=== PATIENT | male | born 1995 | race Caucasian/White ===

== ENCOUNTER 2017-09-22 17:10 | Emergency (ER) | payer MEDICAID ==
[~2017-09-22] VITALS: Ht 172.7 cm; Wt 71.2 kg
[2017-09-22] MEDS ORDERED: PROZAC40 MG ORAL (17:11)
[2017-09-22 17:13] VITALS: BP 145/82
[2017-09-22] MEDS ORDERED: Capsaicin 0.075% Cream TOPIC ONE (17:45)
[2017-09-22] MEDS ORDERED: Acetaminophen 500mg (ES) tab ORAL ONE (17:48)
[2017-09-22 17:55] LABS: HEMATOCRIT 55.9 % (42.0-52.0); MEAN CORPUSCULAR VOLUME 90 FL (80-99); PLATELET COUNT 382 K/UL (150-450); RED CELL DISTRIBUTION WIDTH 11.4 % (11.6-14.8); WHITE BLOOD COUNT 19.9 K/UL (4.8-10.8)
[2017-09-22 17:58] LABS: HEMOGLOBIN 19.1 G/DL (14.2-18.0)
[2017-09-22 18:04] LABS: ANION GAP 31 mmol/L (5-15); BLOOD UREA NITROGEN 7 mg/dL (7-18); CALCIUM 10.4 MG/DL (8.5-10.1); CARBON DIOXIDE 11 MMOL/L (21-32); CHLORIDE 99 MMOL/L (98-107); CREATININE 1.4 MG/DL (0.55-1.30); POTASSIUM 4.2 MMOL/L (3.5-5.1); SODIUM 141 MMOL/L (136-145)
[2017-09-22 18:09] LABS: ALANINE AMINOTRANSFERASE 37 U/L (12-78); ALBUMIN 4.8 G/DL (3.4-5.0); ALBUMIN/GLOBULIN RATIO 1.2 (1.0-2.7); ALKALINE PHOSPHATASE 105 U/L (46-116); ASPARTATE AMINO TRANSFERASE 24 U/L (15-37); BILIRUBIN,TOTAL 0.5 MG/DL (0.2-1.0)
--- NOTE | 2017-09-22 18:17 | Emergency Room Report ---
History of Present Illness General Chief Complaint: Seizure Source: Patient, EMS Present Illness HPI This patient presents with multiple complaints. He states that he had been drinking yesterday and smoking marijuana. He states that he didn't sleep last night and then was working today. He states that he felt hung over all morning this morning. He states while he was at work became very nauseated and started vomiting. His coworkers and his stepdown report that he was on the floor and there was some concern that he had a seizure. He seemed disoriented and wasn't responding. He was also shaking and had a red face according to his stepdad. The patient has never had a seizure in the past. He does have anxiety and had been on Ativan for some time. He states he stopped using Ativan about one week ago. He has also had multiple episodes of watery diarrhea today. He has had a headache but states that is since resolved. He denies abdominal pain. She denies chest pain or shortness of breath. He states he still has severe nausea. He has no other complaints. Allergies: Coded Allergies: No Known Allergies (Unverified , 09/22/17) Patient History Past Medical History: see triage record, psych hx - Anxiety Social History: Reports: smoking, alcohol use, drug use - THC Reviewed Nursing Documentation: PMH: Agreed; PSxH: Agreed Nursing Documentation-PMH Past Medical History: No Stated History Review of Systems All Other Systems: negative except mentioned in HPI Physical Exam Vital Signs Date Time Temp Pulse Resp B/P (MAP) Pulse Ox O2 Delivery O2 Flow Rate FiO2 09/22/17 17:03 98.0 109 18 145/82 97 Room Air 98.1 Sp02 EP Interpretation: reviewed, normal General Appearance: no apparent distress, alert, GCS 15, non-toxic, other - Actively vomiting Head: normocephalic, atraumatic Eyes: bilateral eye normal inspection, bilateral eye PERRL ENT: hearing grossly normal, normal pharynx, no angioedema, normal voice Neck: full range of motion, supple/symm/no masses Respiratory: chest non-tender, lungs clear, normal breath sounds, no respiratory distress, no retraction, no accessory muscle use, speaking full sentences Cardiovascular #1: no edema, tachycardia Gastrointestinal: normal bowel sounds, non tender, soft, non-distended, no guarding, no rebound Rectal: deferred Musculoskeletal: back normal, normal range of motion, non-tender Neurologic: alert, oriented x3, responsive, motor strength/tone normal, sensory intact, speech normal Psychiatric: judgement/insight normal, memory normal, mood/affect normal, no suicidal/homicidal ideation Skin: normal color, no rash, warm/dry, well hydrated Medical Decision Making Diagnostic Impression: Primary Impression: Nausea & vomiting Additional Impressions: Gastroenteritis Leukocytosis Dehydration Hyperglycemia ER Course The patient had complete resolution of symptoms. He is given aggressive IV hydration and IV Zofran. The patient had a significant leukocytosis and hyperglycemia on arrival. I am concerned this patient had undiagnosed diabetes. I had planned on admitting this patient because the patient's leukocytosis persisted. The patient's blood sugar did improve with the aggressive hydration. Patient felt much better. I plan on admitting this patient for further monitoring and treatment, however, the patient left AGAINST MEDICAL ADVICE. He states that he has been told that his blood sugar has been elevated in the past and to use diet modification and exercise. He continued to refuse to be admitted. He and his mother state that he will go see his primary care physician who he does see regularly to get repeat labs. He was also told that if he changes his mind he can return as needed. He did appear much better and was nontoxic and well-appearing when he left. Laboratory Tests Test 09/22/17 17:30 09/22/17 20:49 White Blood Count 19.9 K/UL (4.8-10.8) H 23.2 K/UL (4.8-10.8) *H Red Blood Count 6.20 M/UL (4.70-6.10) H 5.10 M/UL (4.70-6.10) Hemoglobin 19.1 G/DL (14.2-18.0) *H 15.7 G/DL (14.2-18.0) Hematocrit 55.9 % (42.0-52.0) H 45.7 % (42.0-52.0) Mean Corpuscular Volume 90 FL (80-99) 90 FL (80-99) Mean Corpuscular Hemoglobin 30.8 PG (27.0-31.0) 30.7 PG (27.0-31.0) Mean Corpuscular Hemoglobin Concent 34.1 G/DL (32.0-36.0) 34.2 G/DL (32.0-36.0) Red Cell Distribution Width 11.4 % (11.6-14.8) L 11.6 % (11.6-14.8) Platelet Count 382 K/UL (150-450) 205 K/UL (150-450) Mean Platelet Volume 7.3 FL (6.5-10.1) 7.7 FL (6.5-10.1) Neutrophils (%) (Auto) % (45.0-75.0) % (45.0-75.0) Lymphocytes (%) (Auto) % (20.0-45.0) % (20.0-45.0) Monocytes (%) (Auto) % (1.0-10.0) % (1.0-10.0) Eosinophils (%) (Auto) % (0.0-3.0) % (0.0-3.0) Basophils (%) (Auto) % (0.0-2.0) % (0.0-2.0) Differential Total Cells Counted 100 Neutrophils % (Manual) 76 % (45-75) H Pending Lymphocytes % (Manual) 19 % (20-45) L Pending Monocytes % (Manual) 5 % (1-10) Eosinophils % (Manual) 0 % (0-3) Basophils % (Manual) 0 % (0-2) Band Neutrophils 0 % (0-8) Platelet Estimate Adequate Pending Platelet Morphology Normal Pending Red Blood Cell Morphology Normal Sodium Level 141 MMOL/L (136-145) 143 MMOL/L (136-145) Potassium Level 4.2 MMOL/L (3.5-5.1) 3.8 MMOL/L (3.5-5.1) Chloride Level 99 MMOL/L (98-107) 109 MMOL/L (98-107) H Carbon Dioxide Level 11 MMOL/L (21-32) L 26 MMOL/L (21-32) Anion Gap 31 mmol/L (5-15) H 8 mmol/L (5-15) Blood Urea Nitrogen 7 mg/dL (7-18) 5 mg/dL (7-18) L Creatinine 1.4 MG/DL (0.55-1.30) H 1.0 MG/DL (0.55-1.30) Estimate Glomerular Filtration Rate > 60 mL/min (>60) > 60 mL/min (>60) Glucose Level 212 MG/DL (74-106) H 122 MG/DL (74-106) H Calcium Level 10.4 MG/DL (8.5-10.1) H 7.5 MG/DL (8.5-10.1) #L Total Bilirubin 0.5 MG/DL (0.2-1.0) Aspartate Amino Transferase (AST) 24 U/L (15-37) Alanine Aminotransferase (ALT) 37 U/L (12-78) Alkaline Phosphatase 105 U/L (46-116) Troponin I 0.000 ng/mL (0.000-0.056) Total Protein 8.9 G/DL (6.4-8.2) H Albumin 4.8 G/DL (3.4-5.0) Globulin 4.1 g/dL Albumin/Globulin Ratio 1.2 (1.0-2.7) Serum Alcohol < 3 mg/dL Urine Color Pale yellow Urine Appearance Clear Urine pH 6 (4.5-8.0) Urine Specific [place] 1.015 (1.005-1.035) Urine Protein 2+ (NEGATIVE) H Urine Glucose (UA) 1+ (NEGATIVE) H Urine Ketones 2+ (NEGATIVE) H Urine Occult Blood 1+ (NEGATIVE) H Urine Nitrite Negative (NEGATIVE) Urine Bilirubin Negative (NEGATIVE) Urine Urobilinogen Normal MG/DL (0.0-1.0) Urine Leukocyte Esterase Negative (NEGATIVE) Urine RBC 0-2 /HPF (0 - 0) H Urine WBC 0-2 /HPF (0 - 0) Urine Squamous Epithelial Cells None /LPF (NONE/OCC) Urine Bacteria Few /HPF (NONE) Urine Opiates Screen Negative (NEGATIVE) Urine Barbiturates Screen Negative (NEGATIVE) Phencyclidine (PCP) Screen Negative (NEGATIVE) Urine Amphetamines Screen Negative (NEGATIVE) Urine Benzodiazepines Screen Negative (NEGATIVE) Urine Cocaine Screen Negative (NEGATIVE) Urine Marijuana (THC) Screen Positive (NEGATIVE) H EKG Diagnostic Results Rate: normal Rhythm: NSR - Short MD ST Segments: no acute changes Rhythm Strip Diag. Results EP Interpretation: yes Rate: 70's Rhythm: NSR, no PVC's, no ectopy CT/MRI/US Diagnostic Results CT/MRI/US Diagnostic Results : Imaging Test Ordered: CT head Impression No acute findings. See official report. Last Vital Signs Date Time Temp Pulse Resp B/P (MAP) Pulse Ox O2 Delivery O2 Flow Rate FiO2 09/22/17 17:55 98.0 09/22/17 17:13 18 145/82 97 Room Air 09/22/17 17:13 109 Status: improved Disposition: AGAINST MEDICAL ADVICE Condition: Improved Referrals: [facility],REFERRING (PCP) BEATRIZ HAYNES D.O. Sep 22, 2017 18:17
[2017-09-22 18:54] VITALS: BP 120/73
[2017-09-22 21:05] LABS: APPEARANCE,URINE CLEAR; BILIRUBIN, URINE NEGATIVE (NEGATIVE); COLOR,URINE PALE YELLOW; GLUCOSE, URINE (UA) 1+ (NEGATIVE); KETONES,URINE 2+ (NEGATIVE); LEUKOCYTE ESTERASE ,URINE NEGATIVE (NEGATIVE); NITRITE,URINE NEGATIVE (NEGATIVE); PH,URINE 6 (4.5-8.0); PROTEIN,URINE 2+ (NEGATIVE); UROBILINOGEN,URINE NORMAL MG/DL (0.0-1.0)
[2017-09-22 21:08] LABS: HEMATOCRIT 45.7 % (42.0-52.0); HEMOGLOBIN 15.7 G/DL (14.2-18.0); MEAN CORPUSCULAR VOLUME 90 FL (80-99); PLATELET COUNT 205 K/UL (150-450); RED CELL DISTRIBUTION WIDTH 11.6 % (11.6-14.8)
[2017-09-22 21:13] LABS: WHITE BLOOD COUNT 23.2 K/UL (4.8-10.8)
[2017-09-22 21:15] LABS: ANION GAP 8 mmol/L (5-15); BLOOD UREA NITROGEN 5 mg/dL (7-18); CALCIUM 7.5 MG/DL (8.5-10.1); CARBON DIOXIDE 26 MMOL/L (21-32); CHLORIDE 109 MMOL/L (98-107); POTASSIUM 3.8 MMOL/L (3.5-5.1); SODIUM 143 MMOL/L (136-145)
[2017-09-22 21:43] VITALS: BP 120/73
--- NOTE | 2017-09-23 09:48 | Diagnostic Imaging Report ---
Indication: Seizure, nausea, vomiting Technique: Continuous helical CT scanning of the head was performed without intravenous contrast material. Axial and coronal 5 mm sections were generated. Radiation dose was minimized using automated exposure control Dose: Total Dose Length Product - DLP 1340.[address] Dose Index - CTDIvol(s) 70.38 mGy. Comparison: none Findings: The ventricular system is normal in size and configuration. There is no shift of midline structures. No abnormal extra-axial fluid collections are noted. There is no evidence of intracerebral bleeding. No other abnormal high or low density areas are noted within the brain. Intact calvarium. Normal henderson-white differentiation. Visualized orbits and sinuses are unremarkable Impression: Normal CT scan of the head without contrast material. This agrees with the preliminary interpretation provided overnight by [facility]. The CT scanner at [facility] is accredited by the [employer] and the scans are performed using protocols designed to limit radiation exposure to as low as reasonably achievable to attain images of sufficient resolution adequate for diagnostic evaluation.
--- NOTE | 2017-09-23 13:51 | Cardiology Report ---
APPROVED REPORT EKG Measurement Heart [id number] Sinus rhythm with short DC Otherwise normal ECG
== END 2017-09-22 21:56 | disposition left against medical advice (07) ==
LOC: EDBD 17:10 → EMR 17:54 → CANBEDREQ 21:30 → EMR 21:56
DX: K52.9 Noninfective gastroenteritis and colitis, unspecified (principal); D72.829 Elevated white blood cell count, unspecified; E86.0 Dehydration; R73.9 Hyperglycemia, unspecified; F41.9 Anxiety disorder, unspecified; F12.90 Cannabis use, unspecified, uncomplicated; Z72.89 Other problems related to lifestyle
CPT/HCPCS: 36415; 70450; 80048; 80053; 80307; 80329; 81003; 84484; 85007; 85025; 93005; 96361; 96374; 96375; 99284; J2405; 96365